=== PATIENT | male | born 1980 | race American Indian/Alaskan Native ===

== ENCOUNTER 2016-09-17 21:09 | Emergency (ER) | payer OTHER ==
[2016-09-17 21:57] LABS: Urine Drugs of Abuse Note Disclamer
[2016-09-17 22:05] LABS: Bilirubin,Urine NEG (Negative); Blood,Urine NEG (Negative); Ketones,Urine TR mg/dL (Negative); Leukocyte Esterase,Urine NEG (Negative); Mucus,Urine FEW /HPF; Nitrite,Urine NEG (Negative); Urobilinogen,Urine < 2.0 mg/dL (<2.0)
[2016-09-17 22:10] LABS: Anion Gap 28 mmol/L; BUN/Creatinine Ratio 11.11; Basophils % (Auto) 1.2 % (0.0-1.8); Blood Urea Nitrogen 10 mg/dL (9-20); Carbon Dioxide 21 mmol/L (22-30); Chloride 99.9 mmol/L (98-107); Eosinophils % (Auto) 5.6 % (0.0-4.3); Glucose 85 mg/dL (75-100); Hematocrit 43.2 % (35.5-45.6); Hemoglobin 14.4 gm/dl (11.8-15.2); Mean Corpuscular HGB Conc 33 % (32-34); Mean Corpuscular Hemoglobin 33 pg (28-32); Mean Corpuscular Volume 100 fl (84-94); Platelet Count 304 K/mm3 (140-440); Potassium 4.6 mmol/L (3.6-5.0); Red Blood Count 4.32 M/mm3 (3.65-5.03); Red Cell Distribution Width 13.2 % (13.2-15.2); Sodium 144 mmol/L (137-145); White Blood Count 4.9 K/mm3 (4.5-11.0)
--- NOTE | 2016-09-17 23:08 | Emergency Department Report ---
HPI - General Chief Complaint: Psych Time Seen by Provider: 09/17/16 22:58 - HPI HPI: Guzman 16 The patient is a 36-year-old male presenting with a chief complaint allegedly of suicidal ideation. The patient refuses to talk to me during the interview. Patient was brought in by police 113 states "motherShorty stated lexii threatened to kill himself. MotherShorty did not kill him. Mother is fearful Jignesh will harm himself not involuntarily admitted." "No visible physical injuries, but appeared mentally unstable." "Has history of wanting to harm himself." Location: Mental state Duration: Unknown Quality: Suicidal Severity: Severe Modifying factors: [see above] Context: [see above] Mode of transportation: [not driving] ED Past Medical Hx - Past Medical History Previous Medical History?: No - Surgical History Past Surgical History?: No - Family History Family history: no significant - Social History Smoking Status: Current Every Day Smoker Substance Use Type: Alcohol, Other - Medications Home Medications: Home Medications Medication Instructions Recorded Confirmed Last Taken Type No Known Home Medications [No 09/14/15 12/13/15 Unknown History Reported Home Medications] ED Review of Systems ROS: Stated complaint: MH Other details as noted in HPI Comment: Unobtainable due to pts medical conditions Physical Exam - Physical Exam Vital Signs: Vital Signs 09/17/16 21:16 Temperature 98.2 F Pulse Rate 94 H Respiratory 20 Rate Blood Pressure 132/94 [Right] O2 Sat by Pulse 99 Oximetry Physical Exam: GENERAL: The patient is well-developed well-nourished male being escorted into the room by police academy program coordinator not appearing to be in acute distress. [] HEENT: Normocephalic. Atraumatic. Extraocular motions are intact. Patient has moist mucous membranes. NECK: Supple. Trachea midline CHEST/LUNGS: Clear to auscultation. There is no respiratory distress noted. HEART/CARDIOVASCULAR: Regular. There is no tachycardia. There is no gallop rub or murmur. ABDOMEN: Abdomen is soft, nontender. Patient has normal bowel sounds. There is no abdominal distention. SKIN: There is no rash. There is no edema. There is no diaphoresis. NEURO: The patient is awake and alert. The patient is cooperative. The patient has no focal neurologic deficits. The patient has normal speech (noted when he was talking to security officers) and gait. MUSCULOSKELETAL: There is no evidence of acute injury. ED Course Vital Signs 09/17/16 21:16 Temperature 98.2 F Pulse Rate 94 H Respiratory 20 Rate Blood Pressure 132/94 [Right] O2 Sat by Pulse 99 Oximetry ED Medical Decision Making - Lab Data Result diagrams: 09/17/16 21:39 09/17/16 21:39 Laboratory Tests 09/17/16 09/17/16 09/17/16 21:39 21:39 21:39 WBC 4.9 RBC 4.32 Hgb 14.4 Hct 43.2 MCV 100 H MCH 33 H MCHC 33 RDW 13.2 Plt Count 304 Lymph % (Auto) 35.4 H [place] % (Auto) 13.3 H Eos % (Auto) 5.6 H Baso % (Auto) 1.2 Lymph # 1.7 [place] # 0.6 Eos # 0.3 Baso # 0.1 Seg Neutrophils % 44.5 Seg Neutrophils # 2.2 Sodium 144 Potassium 4.6 Chloride 99.9 Carbon Dioxide 21 L Anion Gap 28 BUN 10 Creatinine 0.9 Estimated GFR > 60 BUN/Creatinine Ratio 11.11 Glucose 85 Calcium 9.0 Urine Color Urine Turbidity Urine pH Ur Specific [place] Urine Protein Urine Glucose (UA) Urine Ketones Urine Blood Urine Nitrite Urine Bilirubin Urine Urobilinogen Ur Leukocyte Esterase Urine WBC (Auto) Urine RBC (Auto) U Epithel Cells (Auto) Urine Mucus Salicylates Urine Opiates Screen Urine Methadone Screen Acetaminophen Ur Barbiturates Screen Ur Phencyclidine Scrn Ur Amphetamines Screen U Benzodiazepines Scrn Urine Cocaine Screen U Marijuana (THC) Screen Drugs of Abuse Note Plasma/Serum Alcohol 0.30 H 09/17/16 09/17/16 09/17/16 21:39 21:39 21:50 WBC RBC Hgb Hct MCV MCH MCHC RDW Plt Count Lymph % (Auto) [place] % (Auto) Eos % (Auto) Baso % (Auto) Lymph # [place] # Eos # Baso # Seg Neutrophils % Seg Neutrophils # Sodium Potassium Chloride Carbon Dioxide Anion Gap BUN Creatinine Estimated GFR BUN/Creatinine Ratio Glucose Calcium Urine Color Yellow Urine Turbidity Clear Urine pH 5.0 Ur Specific [place] 1.020 Urine Protein 30 mg/dl Urine Glucose (UA) Neg Urine Ketones Tr Urine Blood Neg Urine Nitrite Neg Urine Bilirubin Neg Urine Urobilinogen < 2.0 Ur Leukocyte Esterase Neg Urine WBC (Auto) 1.0 Urine RBC (Auto) 2.0 U Epithel Cells (Auto) 1.0 Urine Mucus Few Salicylates < 0.3 L Urine Opiates Screen Urine Methadone Screen Acetaminophen < 15.0 Ur Barbiturates Screen Ur Phencyclidine Scrn Ur Amphetamines Screen U Benzodiazepines Scrn Urine Cocaine Screen U Marijuana (THC) Screen Drugs of Abuse Note Plasma/Serum Alcohol 09/17/16 21:50 WBC RBC Hgb Hct MCV MCH MCHC RDW Plt Count Lymph % (Auto) [place] % (Auto) Eos % (Auto) Baso % (Auto) Lymph # [place] # Eos # Baso # Seg Neutrophils % Seg Neutrophils # Sodium Potassium Chloride Carbon Dioxide Anion Gap BUN Creatinine Estimated GFR BUN/Creatinine Ratio Glucose Calcium Urine Color Urine Turbidity Urine pH Ur Specific [place] Urine Protein Urine Glucose (UA) Urine Ketones Urine Blood Urine Nitrite Urine Bilirubin Urine Urobilinogen Ur Leukocyte Esterase Urine WBC (Auto) Urine RBC (Auto) U Epithel Cells (Auto) Urine Mucus Salicylates Urine Opiates Screen Presumptive negative Urine Methadone Screen Presumptive negative Acetaminophen Ur Barbiturates Screen Presumptive negative Ur Phencyclidine Scrn Presumptive negative Ur Amphetamines Screen Presumptive negative U Benzodiazepines Scrn Presumptive positive Urine Cocaine Screen Presumptive negative U Marijuana (THC) Screen Presumptive negative Drugs of Abuse Note Disclamer Plasma/Serum Alcohol - Differential Diagnosis suicidal ideation Critical care attestation.: If time is entered above; I have spent that time in minutes in the direct care of this critically ill patient, excluding procedure time. ED Disposition Clinical Impression: History of suicidal ideation, Alcohol intoxication Disposition: [id number]/TX-65 PSY HOSP/PSY UNIT Is pt being admited?: No Does the pt Need Aspirin: No Condition: Serious Referrals: PRIMARY CARE, [Primary Care Provider] - 3-5 Days Time of Disposition: 23:09 (awaiting acceptance)
[2016-09-18] MEDS ORDERED: LIBRIUM PO ONE (18:41)
--- NOTE | 2016-09-18 18:52 | Consultation ---
History of Present Illness - Reason for Consult Consult date: 09/18/16 Reason for consult: Mental Health Evaluation Requesting physician: TAMARA NICOLE - Chief Complaint Chief complaint: "I am not suicidal" - History of Present Psychiatric Illness The patient is a 36-year-old male presenting with a chief complaint allegedly of suicidal ideation. Today patient is calm and cooperative during assessment. He denies being suicidal, but did admit that he told his mother that he should . He stated that he got into an argument with his mother and made the gesture. He stated that he was drinking when that occurred. He admit to having a drinking problem for the past 12 years. He stated that he observed most of the men in his family drink alcohol (etoh) excessively. He denies being depressed and stated, "I drink because I get bored." He stated that he drink at least 6 beers a day for the past 10 years. His last drink was 2 days ago. He denies SI/HI's, AVH's, and depression. He denies recreational drug use. Patient is positive for benzos, but deny taking them. Medications and Allergies Allergies Allergy/AdvReac Type Severity Reaction Status Date / Time strawberry Allergy Itching Verified 09/17/16 23:52 banana AdvReac Itching Verified 09/17/16 23:52 kiwi AdvReac Itching Verified 09/17/16 23:52 Tree Nuts AdvReac Itching Uncoded 09/17/16 23:52 Home Medications Medication Instructions Recorded Confirmed Last Taken Type No Known Home Medications [No 09/14/15 09/17/16 Unknown History Reported Home Medications] Past psychiatric history - Past Medical History Past Medical History: No medical history Past Surgical History: No surgical history - past Psychiatric treatment and history psychiatric treatment history: Patient stated that he been to [facility]. Fam hx of alcoholism. - Social History Social history: lives with family (GED) Mental Status Exam - Vital signs Last Vital Signs Temp 98.2 F 09/18/16 07:40 Pulse 89 09/18/16 07:40 Resp 18 09/18/16 07:51 BP 131/89 09/18/16 07:40 Pulse Ox 99 09/18/16 07:40 - Exam Narrative exam: ROS: (-) depression MSE: Appearance: calm, cooperative Behavior: poor eye contact Speech: regular rate and tone Mood: "I am okay" Affect: labile Thought Process: circumstantial Thought Content: denies SI/HI's and VH's Motor Activity: ambulatory Cognition: A/Ox 3 Insight: limited Judgment: limited Results Result Diagrams: 09/17/16 21:39 09/17/16 21:39 Abnormal lab results 09/17/16 09/17/16 09/17/16 Range/Units 21:39 21:39 21:39 MCV 100 H (84-94) fl MCH 33 H (28-32) pg Lymph % (Auto) 35.4 H (13.4-35.0) % [place] % (Auto) 13.3 H (0.0-7.3) % Eos % (Auto) 5.6 H (0.0-4.3) % Carbon Dioxide 21 L (22-30) mmol/L Salicylates (2.8-20.0) mg/dL Plasma/Serum Alcohol 0.30 H (0-0.07) gm% 09/17/16 Range/Units 21:39 MCV (84-94) fl MCH (28-32) pg Lymph % (Auto) (13.4-35.0) % [place] % (Auto) (0.0-7.3) % Eos % (Auto) (0.0-4.3) % Carbon Dioxide (22-30) mmol/L Salicylates < 0.3 L (2.8-20.0) mg/dL Plasma/Serum Alcohol (0-0.07) gm% All other labs normal. 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 renee patient is calm and cooperative during assessment. He denies SI/HI's. Recommendation/Plan: Continue 1013 and gather more collateral to determine proper dispo. Start Ativan 1 mg Q6hrs for alcohol withdrawals.
[2016-09-18] MEDS ORDERED: ATIVAN PO PRN (19:06)
[2016-09-19] MEDS ORDERED: LIBRIUM PO PRN ×2 (08:10)
--- NOTE | 2016-09-19 12:10 | Progress Note ---
Subjective - Reason for Consult Consult date: 09/19/16 Reason for consult: Psychiatry Follow-up - Chief Complaint Chief complaint: "Again, I am not suicidal" The patient is a 36-year-old male presenting with a chief complaint allegedly of suicidal ideation. Today patient is calm and cooperative during the assessment. He stated taking a Librium yesterday afternoon for withdrawals. He is adamant about not being suicidal. He stated once he get discharged, he will attend [facility] and finish treatment. He stated his last time at [facility], he left without finishing treatment. He denies SI/HI's, AVH's, and depression. 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 Today patient is calm and cooperative during assessment. He denies SI/HI's. Mild tremors noted (etoh). Recommendation/Plan: Continue 1013 and gather more collateral to determine proper dispo. Continue [facility] protocol.
--- NOTE | 2016-09-20 11:22 | Progress Note ---
Subjective - Reason for Consult Consult date: 09/20/16 Reason for consult: Psychiatry Follow-up - Chief Complaint Chief complaint: "I want to stop drinking" The patient is a 36-year-old male presenting with a chief complaint allegedly of suicidal ideation. Today patient is calm and cooperative during the assessment. He stated joining AA and completing rehab is a must. He denies SI/HI 's and AVH's. Per the staff no behavioral disturbances overnight. 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 Today patient is calm and cooperative during assessment. He denies SI/HI's. Patient is no threat to self or others. Recommendation/Plan: Rescind 1013. Patient given outpatient rehab services information in his area. Discussed joining AA and the importance to abstain from alcohol.
[2016-09-20 16:34] VITALS: BP 132/84
--- NOTE | 2016-09-20 18:36 | Event Note ---
Date: 09/20/16 Patient's 1013 has been discontinued by psychiatry. He is not homicidal or suicidal. The patient is alert and oriented 3. He has a GCS of 15, with an NIH score of 0, he has no complaints and is clinically sober at this time. He will be discharged. Return precautions are reviewed. Vital Signs 09/17/16 09/18/16 09/18/16 21:16 07:40 07:51 Temperature 98.2 F 98.2 F Pulse Rate 94 H 89 Respiratory 20 18 18 Rate Blood Pressure 132/94 131/89 [Right] O2 Sat by Pulse 99 99 Oximetry 09/18/16 09/19/16 09/19/16 19:00 11:50 12:06 Temperature 98.3 F 98 F Pulse Rate 85 74 Respiratory 18 18 Rate Blood Pressure 152/81 157/99 [Right] O2 Sat by Pulse 99 16 L 16 L Oximetry 09/19/16 09/20/16 09/20/16 22:00 07:51 16:34 Temperature 98.5 F 98 F Pulse Rate 73 46 L 62 Respiratory 18 16 16 Rate Blood Pressure 130/90 139/89 132/84 [Right] O2 Sat by Pulse 100 100 99 Oximetry Lab Results 09/17/16 09/17/16 09/17/16 Range/Units 21:39 21:39 21:39 WBC 4.9 (4.5-11.0) K/mm3 RBC 4.32 (3.65-5.03) M/mm3 Hgb 14.4 (11.8-15.2) gm/dl Hct 43.2 (35.5-45.6) % MCV 100 H (84-94) fl MCH 33 H (28-32) pg MCHC 33 (32-34) % RDW 13.2 (13.2-15.2) % Plt Count 304 (140-440) K/mm3 Lymph % (Auto) 35.4 H (13.4-35.0) % [place] % (Auto) 13.3 H (0.0-7.3) % Eos % (Auto) 5.6 H (0.0-4.3) % Baso % (Auto) 1.2 (0.0-1.8) % Lymph # 1.7 (1.2-5.4) K/mm3 [place] # 0.6 (0.0-0.8) K/mm3 Eos # 0.3 (0.0-0.4) K/mm3 Baso # 0.1 (0.0-0.1) K/mm3 Seg Neutrophils % 44.5 (40.0-70.0) % Seg Neutrophils # 2.2 (1.8-7.7) K/mm3 Sodium 144 (137-145) mmol/L Potassium 4.6 (3.6-5.0) mmol/L Chloride 99.9 (98-107) mmol/L Carbon Dioxide 21 L (22-30) mmol/L Anion Gap 28 mmol/L BUN 10 (9-20) mg/dL Creatinine 0.9 (0.8-1.5) mg/dL Estimated GFR > 60 ml/min BUN/Creatinine Ratio 11.11 % Glucose 85 (75-100) mg/dL Calcium 9.0 (8.4-10.2) mg/dL Urine Color (Yellow) Urine Turbidity (Clear) Urine pH (5.0-7.0) Ur Specific [place] (1.003-1.030) Urine Protein (Negative) mg/dL Urine Glucose (UA) (Negative) mg/dL Urine Ketones (Negative) mg/dL Urine Blood (Negative) Urine Nitrite (Negative) Urine Bilirubin (Negative) Urine Urobilinogen (<2.0) mg/dL Ur Leukocyte Esterase (Negative) Urine WBC (Auto) (0.0-6.0) /HPF Urine RBC (Auto) (0.0-6.0) /HPF U Epithel Cells (Auto) (0-13.0) /HPF Urine Mucus /HPF Salicylates (2.8-20.0) mg/dL Urine Opiates Screen Urine Methadone Screen Acetaminophen (10.0-30.0) ug/mL Ur Barbiturates Screen Ur Phencyclidine Scrn Ur Amphetamines Screen U Benzodiazepines Scrn Urine Cocaine Screen U Marijuana (THC) Screen Drugs of Abuse Note Plasma/Serum Alcohol 0.30 H (0-0.07) gm% 09/17/16 09/17/16 09/17/16 Range/Units 21:39 21:39 21:50 WBC (4.5-11.0) K/mm3 RBC (3.65-5.03) M/mm3 Hgb (11.8-15.2) gm/dl Hct (35.5-45.6) % MCV (84-94) fl MCH (28-32) pg MCHC (32-34) % RDW (13.2-15.2) % Plt Count (140-440) K/mm3 Lymph % (Auto) (13.4-35.0) % [place] % (Auto) (0.0-7.3) % Eos % (Auto) (0.0-4.3) % Baso % (Auto) (0.0-1.8) % Lymph # (1.2-5.4) K/mm3 [place] # (0.0-0.8) K/mm3 Eos # (0.0-0.4) K/mm3 Baso # (0.0-0.1) K/mm3 Seg Neutrophils % (40.0-70.0) % Seg Neutrophils # (1.8-7.7) K/mm3 Sodium (137-145) mmol/L Potassium (3.6-5.0) mmol/L Chloride (98-107) mmol/L Carbon Dioxide (22-30) mmol/L Anion Gap mmol/L BUN (9-20) mg/dL Creatinine (0.8-1.5) mg/dL Estimated GFR ml/min BUN/Creatinine Ratio % Glucose (75-100) mg/dL Calcium (8.4-10.2) mg/dL Urine Color Yellow (Yellow) Urine Turbidity Clear (Clear) Urine pH 5.0 (5.0-7.0) Ur Specific [place] 1.020 (1.003-1.030) Urine Protein 30 mg/dl (Negative) mg/dL Urine Glucose (UA) Neg (Negative) mg/dL Urine Ketones Tr (Negative) mg/dL Urine Blood Neg (Negative) Urine Nitrite Neg (Negative) Urine Bilirubin Neg (Negative) Urine Urobilinogen < 2.0 (<2.0) mg/dL Ur Leukocyte Esterase Neg (Negative) Urine WBC (Auto) 1.0 (0.0-6.0) /HPF Urine RBC (Auto) 2.0 (0.0-6.0) /HPF U Epithel Cells (Auto) 1.0 (0-13.0) /HPF Urine Mucus Few /HPF Salicylates < 0.3 L (2.8-20.0) mg/dL Urine Opiates Screen Urine Methadone Screen Acetaminophen < 15.0 (10.0-30.0) ug/mL Ur Barbiturates Screen Ur Phencyclidine Scrn Ur Amphetamines Screen U Benzodiazepines Scrn Urine Cocaine Screen U Marijuana (THC) Screen Drugs of Abuse Note Plasma/Serum Alcohol (0-0.07) gm% 09/17/16 Range/Units 21:50 WBC (4.5-11.0) K/mm3 RBC (3.65-5.03) M/mm3 Hgb (11.8-15.2) gm/dl Hct (35.5-45.6) % MCV (84-94) fl MCH (28-32) pg MCHC (32-34) % RDW (13.2-15.2) % Plt Count (140-440) K/mm3 Lymph % (Auto) (13.4-35.0) % [place] % (Auto) (0.0-7.3) % Eos % (Auto) (0.0-4.3) % Baso % (Auto) (0.0-1.8) % Lymph # (1.2-5.4) K/mm3 [place] # (0.0-0.8) K/mm3 Eos # (0.0-0.4) K/mm3 Baso # (0.0-0.1) K/mm3 Seg Neutrophils % (40.0-70.0) % Seg Neutrophils # (1.8-7.7) K/mm3 Sodium (137-145) mmol/L Potassium (3.6-5.0) mmol/L Chloride (98-107) mmol/L Carbon Dioxide (22-30) mmol/L Anion Gap mmol/L BUN (9-20) mg/dL Creatinine (0.8-1.5) mg/dL Estimated GFR ml/min BUN/Creatinine Ratio % Glucose (75-100) mg/dL Calcium (8.4-10.2) mg/dL Urine Color (Yellow) Urine Turbidity (Clear) Urine pH (5.0-7.0) Ur Specific [place] (1.003-1.030) Urine Protein (Negative) mg/dL Urine Glucose (UA) (Negative) mg/dL Urine Ketones (Negative) mg/dL Urine Blood (Negative) Urine Nitrite (Negative) Urine Bilirubin (Negative) Urine Urobilinogen (<2.0) mg/dL Ur Leukocyte Esterase (Negative) Urine WBC (Auto) (0.0-6.0) /HPF Urine RBC (Auto) (0.0-6.0) /HPF U Epithel Cells (Auto) (0-13.0) /HPF Urine Mucus /HPF Salicylates (2.8-20.0) mg/dL Urine Opiates Screen Presumptive negative Urine Methadone Screen Presumptive negative Acetaminophen (10.0-30.0) ug/mL Ur Barbiturates Screen Presumptive negative Ur Phencyclidine Scrn Presumptive negative Ur Amphetamines Screen Presumptive negative U Benzodiazepines Scrn Presumptive positive Urine Cocaine Screen Presumptive negative U Marijuana (THC) Screen Presumptive negative Drugs of Abuse Note Disclamer Plasma/Serum Alcohol (0-0.07) gm%
== END 2016-09-20 20:30 | disposition home or self-care (01) ==
LOC: ED 21:09 → EEVIPCON 21:09 → ED 09-20 20:30
DX: F10.120 Alcohol abuse with intoxication, uncomplicated (principal); F17.210 Nicotine dependence, cigarettes, uncomplicated
CPT/HCPCS: 36415; 80048; 80307; 81001; 85025; 99284; G0480; 80320

== ENCOUNTER 2020-03-21 23:26 | Inpatient (IN) | payer OTHER ==
--- NOTE | 2020-03-21 23:54 | Event Note ---
ED Screening Note Date of service: 03/21/20 Time: 23:48 ED Screening Note: 39-year-old -[place] male presents to the emergency room requesting detox from alcohol. Patient reports he has been drinking alcohol for the last 20 years. States that when he gets bored he drinks alcohol. Patient does have a past medical history of suicidal ideation and alcoholism. Patient reports that he is having audiovisual hallucinations. Patient states that he hears [place] music in his ear as well as to conversations in his ear. Patient also admits to being paranoid. He reports he has been in rehab about 5 times but nothing has stopped. Patient denies any suicidal homicidal ideation. This initial assessment/diagnostic orders/clinical plan/treatment(s) is/are subject to change based on patients health status, clinical progression and re- assessment by fellow clinical providers in the ED. Further treatment and workup at subsequent clinical providers discretion. Patient/guardian urged not to elope from the ED as their condition may be serious if not clinically assessed and managed. Initial orders include:
[2020-03-22] MEDS ORDERED: LORazepam 2 MG/ML VIAL IV PRN ×2 (00:24)
[2020-03-22 00:26] LABS: Basophils % (Auto) 0.4 % (0.0-1.8); Eosinophils % (Auto) 0.7 % (0.0-4.3); Hematocrit 38.2 % (35.5-45.6); Hemoglobin 12.9 gm/dl (11.8-15.2); Lymphocytes # (Auto) 0.8 K/mm3 (1.2-5.4); Lymphocytes % (Auto) 15.9 % (13.4-35.0); Mean Corpuscular HGB Conc 34 % (32-34); Mean Corpuscular Volume 104 fl (84-94); Monocytes # (Auto) 0.5 K/mm3 (0.0-0.8); Monocytes % (Auto) 9.1 % (0.0-7.3); Platelet Count 109 K/mm3 (140-440); Red Blood Count 3.68 M/mm3 (3.65-5.03); Red Cell Distribution Width 13.8 % (13.2-15.2)
--- NOTE | 2020-03-22 00:30 | Emergency Department Report ---
ED Alcohol HPI - General Chief Complaint: Alcohol Stated Complaint: REMY/ANXIETY Time Seen by Provider: 03/22/20 00:19 Source: patient Mode of arrival: Stretcher Limitations: No Limitations - History of Present Illness Initial Comments: Patient is 39 years old male with history of chronic alcoholism and ADHD. Patient presented to the ER stating that he want detox from alcohol. Patient stated that last drink was 6 hours ago. Patient stated that he has been drinking daily for the last 15 days. He stated that he wanted to quit gradually by himself but today his symptoms get worse he became having a lot of shaking and he started having visual hallucination and auditory hallucination also. Patient denied any suicidal or homicidal ideation. Patient also denied any seizure or history of seizure. CIWA protocol immediately initiated. Complaint: alcohol withdrawal, desires rehab -: hour(s) (6) Chronic Alcohol Use: Yes Previous Visits for Alcohol Intoxication?: Yes Recent Trauma: No Associated Symptoms: tremors Treatments Prior to Arrival: none - Related Data Home Medications Medication Instructions Recorded Confirmed Last Taken No Known Home Medications [No 09/14/15 09/17/16 Unknown Reported Home Medications] Allergies Allergy/AdvReac Type Severity Reaction Status Date / Time strawberry Allergy Itching Verified 09/17/16 23:52 banana AdvReac Itching Verified 09/17/16 23:52 kiwi AdvReac Itching Verified 09/17/16 23:52 Tree Nuts AdvReac Itching Uncoded 09/17/16 23:52 ED Review of Systems ROS: Stated complaint: REMY/ANXIETY Other details as noted in HPI Comment: All other systems reviewed and negative Constitutional: denies: chills, fever Respiratory: denies: cough, shortness of breath, SOB with exertion, SOB at rest Cardiovascular: palpitations. denies: chest pain Gastrointestinal: denies: abdominal pain, nausea, vomiting, diarrhea, constipation, hematemesis, melena Skin: denies: rash, lesions Neurological: denies: headache, weakness, numbness, paresthesias, confusion Psychiatric: anxiety, auditory hallucinations, visual hallucinations. denies: depression, homicidal thoughts, suicidal thoughts ED Past Medical Hx - Past Medical History Previous Medical History?: Yes Hx Psychiatric Treatment: Yes (Anxiety) Additional medical history: Alcoholism X 20 years. Insomnia - Surgical History Past Surgical History?: No - Social History Smoking Status: Current Every Day Smoker Substance Use Type: Alcohol - Medications Home Medications: Home Medications Medication Instructions Recorded Confirmed Last Taken Type No Known Home Medications [No 09/14/15 09/17/16 Unknown History Reported Home Medications] ED Physical Exam - General Limitations: No Limitations General appearance: alert, in no apparent distress, anxious - Head Head exam: Present: atraumatic, normocephalic, normal inspection - Eye Eye exam: Present: normal appearance, PERRL - ENT ENT exam: Present: normal exam, normal orophraynx, mucous membranes moist - Neck Neck exam: Present: normal inspection, full ROM. Absent: tenderness, meningismus - Respiratory Respiratory exam: Present: normal lung sounds bilaterally - Cardiovascular Cardiovascular Exam: Present: tachycardia - GI/Abdominal GI/Abdominal exam: Present: soft, normal bowel sounds. Absent: distended, tenderness, guarding, rebound, rigid, organomegaly, mass, bruit, pulsatile mass, hernia - Extremities Exam Extremities exam: Present: normal inspection, full ROM, normal capillary refill. Absent: pedal edema, calf tenderness - Back Exam Back exam: Present: normal inspection, full ROM. Absent: CVA tenderness (R), CVA tenderness (L) - Neurological Exam Neurological exam: Present: alert, oriented X3, CN II-XII intact, normal gait, reflexes normal. Absent: motor sensory deficit - Psychiatric Psychiatric exam: Present: anxious. Absent: depressed, agitated, flat affect, manic, homicidal ideation, suicidal ideation - Skin Skin exam: Present: warm, intact, normal color ED Course Vital Signs 03/21/20 23:34 Temperature 98.3 F Pulse Rate 104 H Respiratory 18 Rate Blood Pressure 167/114 O2 Sat by Pulse 99 Oximetry ED Medical Decision Making - Lab Data Result diagrams: 03/21/20 23:48 03/21/20 23:48 - Medical Decision Making Patient is 39 years old male with history of chronic alcoholism and ADHD. Patient presented to the ER stating that he want detox from alcohol. Patient stated that last drink was 6 hours ago. Patient stated that he has been drinking daily for the last 15 days. He stated that he wanted to quit gradually by himself but today his symptoms get worse he became having a lot of shaking and he started having visual hallucination and auditory hallucination also. Patient denied any suicidal or homicidal ideation. Patient also denied any seizure or history of seizure. CIWA protocol immediately initiated. CIWA score is 28. Patient started on Ativan 4 mg IV. I discussed the patient with , he agreed to admit the patient to medical service for further management. Critical Care Time: Yes Critical care time in (mins) excluding proc time.: 30 Critical care attestation.: If time is entered above; I have spent that time in minutes in the direct care of this critically ill patient, excluding procedure time. ED Disposition Clinical Impression: Alcohol withdrawal delirium Disposition: OP ADMIT IP TO THIS HOSP Is pt being admited?: Yes Condition: Stable Referrals: PRIMARY CARE, [Primary Care Provider] - 3-5 Days
[2020-03-22 00:44] LABS: BUN/Creatinine Ratio 9; Blood Urea Nitrogen 8 mg/dL (9-20); Calcium 9.8 mg/dL (8.4-10.2); Hemolysis Index 4
[2020-03-22] MEDS: LORazepam 2 MG/ML VIAL IV PRN ×5 (00:47→03:32)
[2020-03-22 01:05] LABS: Amphetamine Screen,Urine PRESUMPTIVE NEGATIVE; Benzodiazepines Screen,Urine PRESUMPTIVE NEGATIVE; Cannabinoid Screen,Urine PRESUMPTIVE NEGATIVE; Cocaine Screen,Urine PRESUMPTIVE NEGATIVE; Methadone Screen,Urine PRESUMPTIVE NEGATIVE; Opiate Screen,Urine PRESUMPTIVE NEGATIVE
[2020-03-22 01:09] LABS: Bacteria,Urine 1+ /HPF (Negative); Bilirubin,Urine NEG (Negative); Blood,Urine NEG (Negative); Color,Urine Straw (Yellow); Mucus,Urine FEW /HPF; Protein,Urine <15 mg/dL mg/dL (Negative); Urobilinogen,Urine < 2.0 mg/dL (<2.0); WBC,Urine < 1.0 /HPF (0.0-6.0)
[2020-03-22] MEDS ORDERED: THIAMINE 100 MG, FOLIC ACID 1 MG, MULTIPLE VITAMIN INJ, ADULT 10 ML in SODIUM CHLORIDE ... IV ONE (01:15)
[2020-03-22] MEDS ORDERED: MORPHINE 2 MG/1 ML INJ IV PRN (02:10)
[2020-03-22] MEDS ORDERED: ACETAMINOPHEN 325 MG TAB PO PRN (02:10)
[2020-03-22] MEDS ORDERED: ONDANSETRON 4 MG/2 ML INJ IV PRN (02:10)
[2020-03-22] MEDS ORDERED: MAGNESIUM HYDROXIDE (MOM) ORAL LIQD UDC PO PRN (02:10)
[2020-03-22] MEDS ORDERED: SODIUM CHLORIDE 0.9% 1000 ML 1,000 ML IV SCH (02:15)
[2020-03-22] MEDS ORDERED: hydrALAZINE 20 MG/1 ML INJ IV PRN (02:22)
--- NOTE | 2020-03-22 02:31 | History and Physical Report ---
History of Present Illness Date of examination: 03/22/20 Date of admission: 03/22/2020 Chief complaint: Alcohol detox. History of present illness: Patient is a 39-year-old male with known history of chronic alcohol abuse and attention deficit hypersensitivity disorder presenting to the emergency room today requesting for alcohol detoxification. Patient's last alcohol intake was about 6 hours ago. He states he has been drinking alcohol daily for the past 15 days and wants to gradually quit alcohol abuse. Indicates he has been tremulous and has been having some auditory and visual hallucinations. He denies any suicidal or homicidal ideations. Denies any seiz ures. He denies any headache or dizziness. No nausea vomiting, no chest pain or shortness of breath. Upon arrival in the emergency room patient appeared a little confused however he was able to able to respond appropriately to questions. He was hypertensive upon arrival. Patient being admitted for alcohol withdrawal. He has been started on CIWA protocol and IV fluid. Past History Past Medical History: other (Anxiety, insomnia) Past Surgical History: No surgical history Social history: smoking (Current daily smoker), alcohol abuse (Chronic alcohol abuse) Family history: no significant family history Medications and Allergies Allergies Allergy/AdvReac Type Severity Reaction Status Date / Time strawberry Allergy Itching Verified 09/17/16 23:52 banana AdvReac Itching Verified 09/17/16 23:52 kiwi AdvReac Itching Verified 09/17/16 23:52 Tree Nuts AdvReac Itching Uncoded 09/17/16 23:52 Home Medications Medication Instructions Recorded Confirmed Last Taken Type No Known Home Medications [No 09/14/15 09/17/16 Unknown History Reported Home Medications] Active Meds: Active Medications Acetaminophen (Acetaminophen 325 Mg Tab) 650 mg PO Q4H PRN PRN Reason: Pain MILD(1-3)/Fever >100.5/BARKER Enoxaparin Sodium (Enoxaparin 40 Mg/0.4 Ml Inj) 40 mg SUB-Q QDAY@2200 FELIX; Protocol Hydralazine HCl (Hydralazine 20 Mg/1 Ml Inj) 10 mg IV Q6HR PRN PRN Reason: Blood Pressure Thiamine HCl 100 mg/ Folic Acid 1 mg/ Multivitamins/Minerals 10 ml/ Sodium Chloride 1,011.2 mls @ 250 mls/hr IV ONCE ONE Stop: 03/22/20 05:17 Last Admin: 03/22/20 01:09 Dose: 250 mls/hr Documented by: Sodium Chloride (Nacl 0.9% 1000 Ml) 1,000 mls @ 150 mls/hr IV DIRECT FELIX Lorazepam (Lorazepam 2 Mg/Ml Vial) 2 mg IV Q1H PRN PRN Reason: CIWA-Ar 8-15 Lorazepam (Lorazepam 2 Mg/Ml Vial) 4 mg IV Q1H PRN PRN Reason: CIWA-Ar 16-25 Lorazepam (Lorazepam 2 Mg/Ml Vial) 4 mg IV Q15MIN PRN PRN Reason: CIWA-Ar >25 Last Admin: 03/22/20 02:15 Dose: 4 mg Documented by: Magnesium Hydroxide (Magnesium Hydroxide (Mom) Oral Liqd Udc) 30 ml PO Q4H PRN PRN Reason: Constipation Morphine Sulfate (Morphine 2 Mg/1 Ml Inj) 2 mg IV Q4H PRN PRN Reason: Pain, Moderate (4-6) Ondansetron HCl (Ondansetron 4 Mg/2 Ml Inj) 4 mg IV Q8H PRN PRN Reason: Nausea And Vomiting Sodium Chloride (Sodium Chloride 0.9% 10 Ml Flush Syringe) 10 ml IV BID FELIX Sodium Chloride (Sodium Chloride 0.9% 10 Ml Flush Syringe) 10 ml IV PRN PRN PRN Reason: LINE FLUSH Review of Systems Constitutional: no fever, no chills Ears, nose, mouth and throat: no nasal congestion, no sore throat Cardiovascular: no chest pain, no palpitations Respiratory: no cough, no shortness of breath Gastrointestinal: no abdominal pain, no nausea, no vomiting, no diarrhea Genitourinary Male: no dysuria, no hematuria, no flank pain Musculoskeletal: no neck pain, no low back pain Integumentary: no rash, no pruritis Neurological: confusion, no headaches Psychiatric: anxiety, disorientation, hallucinations, no depression Exam - Constitutional Vitals: Temp Pulse Resp BP Pulse Ox 98.3 F 108 H 29 H 159/99 91 03/21/20 23:34 03/22/20 02:00 03/22/20 02:00 03/22/20 02:00 03/22/20 02:00 General appearance: Present: no acute distress, well-nourished - EENT Eyes: Present: PERRL, EOM intact. Absent: scleral icterus ENT: hearing intact, clear oral mucosa, dentition normal - Neck Neck: Present: supple, normal ROM - Respiratory Respiratory effort: normal Respiratory: bilateral: CTA - Cardiovascular Rhythm: regular Heart Sounds: Present: S1 & S2. Absent: systolic murmur, diastolic murmur, rub - Extremities Extremities: no ischemia, pulses intact, pulses symmetrical, No edema, normal temperature, normal color, Full ROM Peripheral Pulses: within normal limits - Abdominal General gastrointestinal: Present: soft, non-tender, non-distended, normal bowel sounds. Absent: mass - Integumentary Integumentary: Present: clear, warm, dry. Absent: rash - Musculoskeletal Musculoskeletal: strength equal bilaterally - Psychiatric Psychiatric: appropriate mood/affect, memory intact, cooperative, other (Mildly confused) - Neurologic Neurologic: CNII-XII intact, no focal deficits, moves all extremities, other (Tremulous and appears anxious) Results - Labs CBC & Chem 7: 03/21/20 23:48 03/21/20 23:48 Labs: Abnormal lab results 03/21/20 03/21/20 03/21/20 Range/Units 23:48 23:48 23:48 MCV (84-94) fl MCH (28-32) pg Plt Count (140-440) K/mm3 [place] % (Auto) (0.0-7.3) % Lymph # (Auto) (1.2-5.4) K/mm3 Seg Neutrophils % (40.0-70.0) % Sodium 135 L (137-145) mmol/L Chloride 96.1 L (98-107) mmol/L BUN 8 L (9-20) mg/dL Glucose 105 H (75-100) mg/dL Ur Specific [place] (1.003-1.030) Salicylates < 0.3 L (2.8-20.0) mg/dL Acetaminophen 5.0 L (10.0-30.0) ug/mL 03/21/20 03/22/20 Range/Units 23:48 00:23 MCV 104 H (84-94) fl MCH 35 H (28-32) pg Plt Count 109 L (140-440) K/mm3 [place] % (Auto) 9.1 H (0.0-7.3) % Lymph # (Auto) 0.8 L (1.2-5.4) K/mm3 Seg Neutrophils % 73.9 H (40.0-70.0) % Sodium (137-145) mmol/L Chloride (98-107) mmol/L BUN (9-20) mg/dL Glucose (75-100) mg/dL Ur Specific [place] 1.002 L (1.003-1.030) Salicylates (2.8-20.0) mg/dL Acetaminophen (10.0-30.0) ug/mL Assessment and Plan - Patient Problems (1) Alcohol withdrawal delirium Current Visit: Yes Status: Acute Plan to address problem: Patient admitted and placed on alcohol withdrawal protocol. (2) DVT prophylaxis Current Visit: Yes Status: Acute Plan to address problem: Placed on subcutaneous Lovenox. (3) Full code status Current Visit: Yes Status: Acute Plan to address problem: Patient is a full code.
[2020-03-22 02:47] LABS: Alanine Aminotransferase 190 units/L (7-56); Albumin 4.6 g/dL (3.9-5)
[2020-03-22 02:48] LABS: Bilirubin,Direct < 0.2 mg/dL (0-0.2)
--- NOTE | 2020-03-22 10:59 | Consultation ---
History of Present Illness - Reason for Consult Consult date: 03/22/20 Reason for consult: MHE Requesting physician: JOHN NOVA - Chief Complaint Chief complaint: Alcohol detox. - History of Present Psychiatric Illness Per ED Provider: Patient is 39 years old male with history of chronic alcoholism and ADHD. Patient presented to the ER stating that he want detox from alcohol. Patient stated that last drink was 6 hours ago. Patient stated that he has been drinking daily for the last 15 days. He stated that he wanted to quit gradually by himself but today his symptoms get worse he became having a lot of shaking and he started having visual hallucination and auditory hallucination also. Patient denied any suicidal or homicidal ideation. Patient also denied any seizure or history of seizure. PSYCH HPI Patient is a 39-year-old single, currently unemployed -N[place]alese male who currently resides with roommates with past psychiatric history of alcohol use disorder and no significant past medical history who presented to the ED with desire for alcohol detoxification. Patient reported he has been drinking since age 19, and successfully had alcohol detox in the past with maximum of 9 months staying sober but recently due to the holidays she reported started drinking more again usually beer up to 12 packs a day and recently started to come in for alcohol detox he could get his life back together again. Patient denies any acute suicidal ideation homicidal ideation and denies any auditory visual hallucination at this time. PAST PSYCHIATRIC HISTORY Diagnoses: Alcohol use disorder Suicide attempts or Self-harm behavior: None reported Prior psychiatric hospitalizations: None reported Substance Abuse history: Alcohol Previous psychiatric medications tried: None reported Outpatient treatment: None reported PAST MEDICAL HISTORY: None reported Family Psychiatric History: None reported or documented SOCIAL HISTORY Marital Status: Single single Living Arrangements: Rent Employment Status: In between jobs Access to guns/weapons: None reported Education: College dropout History of Abuse: Verbal abuse Legal History: Yes REVIEW OF SYSTEMS Constitutional: Negative for weight loss ENT: Negative for stridor Respiratory: Negative for cough or hemoptysis All other systems reviewed and are negative MENTAL STATUS EXAMINATION General Appearance and Behavior: Age appropriate, good hygiene, wearing appropriate clothes, good eye contact, cooperative polite with questioning. Cooperation: Participating/engaged Psychomotor Behavior: unremarkable and within normal limits Mood: Good Affect and affective range: congruent with mood Thought Process: Fluent/Logical, Thought Content: Within reality, Speech: Normal volume, Regular rate and rhythm, Intellectual Functioning: Average Suicidal Ideation: Denies SI Homicidal Ideation: Denies HI Impulse Control: Unimpaired Insight and Judgment: Normal insight and judgment, Memory: Normal, Attention: Normal, Orientation: Alert, oriented, Assessment and Plan - Psychiatric problem (1) Alcohol use disorder, moderate, dependence (F10.20) Current Visit: Yes Status: Acute (2) Alcohol withdrawal delirium Current Visit: Yes Status: Acute Treatment Plan Patient started on thiamine and placed on alcohol CIWA work-up by ED provider. Will follow MEDICATIONS: Risks, benefits and alternatives of medications discussed with the patient, questions answered and consent obtained from patient. PSYCHOTHERAPY: Supportive psychotherapy provided MEDICAL: Per primary team DELIRIUM PRECAUTIONS: Please re-orient patient frequently, keep lights on during the day, and minimize benzodiazepines and opiates as these medications could worsen patient's confusion. 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 Case discussed with Dr. Nichols who agrees with current disposition LEGAL STATUS: Voluntary FOLLOW-UP: Will follow for delirium. Next assessment 03/25/20 Thank you for the consult. Please contact with any questions and/or concerns. Medications and Allergies Allergies Allergy/AdvReac Type Severity Reaction Status Date / Time strawberry Allergy Itching Verified 09/17/16 23:52 banana AdvReac Itching Verified 09/17/16 23:52 kiwi AdvReac Itching Verified 09/17/16 23:52 Tree Nuts AdvReac Itching Uncoded 09/17/16 23:52 Home Medications Medication Instructions Recorded Confirmed Last Taken Type No Known Home Medications [No 09/14/15 09/17/16 Unknown History Reported Home Medications] Active Meds: Active Medications Acetaminophen (Acetaminophen 325 Mg Tab) 650 mg PO Q4H PRN PRN Reason: Pain MILD(1-3)/Fever >100.5/BARKER Enoxaparin Sodium (Enoxaparin 40 Mg/0.4 Ml Inj) 40 mg SUB-Q QDAY@2200 FELIX; Protocol Hydralazine HCl (Hydralazine 20 Mg/1 Ml Inj) 10 mg IV Q6H PRN PRN Reason: Blood Pressure Sodium Chloride (Nacl 0.9% 1000 Ml) 1,000 mls @ 150 mls/hr IV DIRECT FELIX Last Admin: 03/22/20 10:31 Dose: 150 mls/hr Documented by: Lorazepam (Lorazepam 2 Mg/Ml Vial) 2 mg IV Q1H PRN PRN Reason: CIWA-Ar 8-15 Lorazepam (Lorazepam 2 Mg/Ml Vial) 4 mg IV Q1H PRN PRN Reason: CIWA-Ar 16-25 Lorazepam (Lorazepam 2 Mg/Ml Vial) 4 mg IV Q15MIN PRN PRN Reason: CIWA-Ar >25 Last Admin: 03/22/20 03:32 Dose: 4 mg Documented by: Magnesium Hydroxide (Magnesium Hydroxide (Mom) Oral Liqd Udc) 30 ml PO Q4H PRN PRN Reason: Constipation Morphine Sulfate (Morphine 2 Mg/1 Ml Inj) 2 mg IV Q4H PRN PRN Reason: Pain, Moderate (4-6) Ondansetron HCl (Ondansetron 4 Mg/2 Ml Inj) 4 mg IV Q8H PRN PRN Reason: Nausea And Vomiting Sodium Chloride (Sodium Chloride 0.9% 10 Ml Flush Syringe) 10 ml IV BID FELIX Last Admin: 03/22/20 10:31 Dose: 10 ml Documented by: Sodium Chloride (Sodium Chloride 0.9% 10 Ml Flush Syringe) 10 ml IV PRN PRN PRN Reason: LINE FLUSH Mental Status Exam - Vital signs Last Vital Signs Temp 98.4 F 03/22/20 08:00 Pulse 77 03/22/20 10:15 Resp 14 03/22/20 10:15 BP 130/88 03/22/20 10:15 Pulse Ox 98 03/22/20 10:15 Results Result Diagrams: 03/21/20 23:48 03/21/20 23:48 Abnormal lab results 03/21/20 03/21/20 03/21/20 Range/Units 23:48 23:48 23:48 MCV (84-94) fl MCH (28-32) pg Plt Count (140-440) K/mm3 [place] % (Auto) (0.0-7.3) % Lymph # (Auto) (1.2-5.4) K/mm3 Seg Neutrophils % (40.0-70.0) % Sodium 135 L (137-145) mmol/L Chloride 96.1 L (98-107) mmol/L BUN 8 L (9-20) mg/dL Glucose 105 H (75-100) mg/dL AST (5-40) units/L ALT (7-56) units/L Total Protein (6.3-8.2) g/dL Ur Specific [place] (1.003-1.030) Salicylates < 0.3 L (2.8-20.0) mg/dL Acetaminophen 5.0 L (10.0-30.0) ug/mL 03/21/20 03/22/20 03/22/20 Range/Units 23:48 00:23 02:10 MCV 104 H (84-94) fl MCH 35 H (28-32) pg Plt Count 109 L (140-440) K/mm3 [place] % (Auto) 9.1 H (0.0-7.3) % Lymph # (Auto) 0.8 L (1.2-5.4) K/mm3 Seg Neutrophils % 73.9 H (40.0-70.0) % Sodium (137-145) mmol/L Chloride (98-107) mmol/L BUN (9-20) mg/dL Glucose (75-100) mg/dL AST 370 H (5-40) units/L ALT 190 H (7-56) units/L Total Protein 8.3 H (6.3-8.2) g/dL Ur Specific [place] 1.002 L (1.003-1.030) Salicylates (2.8-20.0) mg/dL Acetaminophen (10.0-30.0) ug/mL All other labs normal. Assessment and Plan - Psychiatric problem (1) Alcohol use disorder, moderate, dependence Current Visit: Yes Status: Acute (2) Alcohol withdrawal delirium Current Visit: Yes Status: Acute
[2020-03-22] MEDS ORDERED: THIAMINE 200 MG/2 ML VIAL IM ONE (11:28)
--- NOTE | 2020-03-22 15:11 | Event Note ---
Date: 03/22/20
[2020-03-22 17:21] VITALS: BP 139/85
--- NOTE | 2020-03-22 17:54 | Event Note ---
Date: 03/22/20 ICU admission requested for DT's at time of my examination CIWA score was 2 - no need for ICU admission and this was conveyed to hospitalist
[2020-03-22] MEDS ORDERED: ENOXAPARIN 40 MG/0.4 ML INJ SUB-Q SCH (22:00)
== END 2020-03-22 18:30 | disposition left against medical advice (07) | DRG 894 ==
LOC: ED 23:26 → CC1 03-22 01:45
PROVIDERS: ADMIT Internal Medicine Geriatric Medicine; ATTEND Internal Medicine
DX: F10.231 Alcohol dependence with withdrawal delirium (principal); Z91.018 Allergy to other foods; F41.9 Anxiety disorder, unspecified; F17.200 Nicotine dependence, unspecified, uncomplicated; Z53.29 Procedure and treatment not carried out because of patient's decision for other reasons
CPT/HCPCS: 36415; 80048; 80076; 80307; 80320; 81001; 83735; 85025; 96365; 96375; G0378; G0480; J2060; J3411; J7030